=== PATIENT | female | born 2000 | race African-American/Black ===

== ENCOUNTER 2021-02-20 08:50 | Emergency (ER) | payer MEDICAID ==
[~2021-02-20] VITALS: Ht 160 cm; Wt 46.3 kg
[2021-02-20 08:56] VITALS: BP 108/55
--- NOTE | 2021-02-20 09:13 | NUR ---
PER ERMD 12 LEAD WAS DONE ON PT AND CAME BACK NSR AT 63 HR.
--- NOTE | 2021-02-20 09:28 | NUR ---
20/F PRESENTS TO ED WITH C/O LOWER RIGHT ABDOMINAL PAIN SINCE THIS MORNING. PATIENT STATES SHE WOKE UP AROUND 7AM FEELING "SHARP CHEST PAIN" AND HAD TWO EPISODES OF VOMITING, STATING CHEST PAIN N/V HAS SINCE RESOLVED BUT NOW REPORTS 10/10 SHARP LOWER ABDOMINAL PAIN THAT IS NONRADIATING. PATIENT STATES SHE NOTICED HER VOMIT WAS "RED" BUT STATES SHE ATE HOT CHEETOS LAST NIGHT. PATIENT STATES SHE HAS HX OF GASTRIC ULCERS AND STATES "THIS FEELS LIKE THAT." DENIES CP, SOB, FEVER, CHILLS OR URINARY SYMPTOMS.
[2021-02-20] MEDS ORDERED: KETOROLAC 15 MG/ML VIAL IM ONE (10:10)
--- NOTE | 2021-02-20 10:51 | NUR ---
ULTRASOUND AT BEDSIDE
--- NOTE | 2021-02-20 10:55 | NUR ---
PATIENT STATES SHE IS UNABLE TO PROVIDE URINE AT THIS TIME.
[2021-02-20 11:21] LABS: BASOPHILS % (AUTO) 0.2 % (0.0-2.0); EOSINOPHILS # (AUTO) 0.1 K/uL (0-0.4); EOSINOPHILS % (AUTO) 2.3 % (0.0-4.0); HEMATOCRIT 40.8 % (36-48); HEMOGLOBIN 13.4 g/dL (12.0-16.0); LYMPHOCYTES # (AUTO) 2.8 K/uL (2.5-16.5); LYMPHOCYTES % (AUTO) 46.7 % (20.5-51.1); MEAN CORPUSCULAR HEMOGLOBIN 31 pg (27-31); MEAN CORPUSCULAR HGB CONC 33 g/dL (33-37); MEAN CORPUSCULAR VOLUME 93.5 fL (80-94); MONOCYTES # (AUTO) 0.4 K/uL (0.8-1.0); MONOCYTES % (AUTO) 7.3 % (1.7-9.3); NEUTROPHILS # (AUTO) 2.6 K/uL (1.8-7.7); NEUTROPHILS % (AUTO) 43.5 % (42.2-75.2); PLATELET COUNT (AUTO) 174 K/uL (140-450); RED BLOOD CELL COUNT(AUTO) 4.36 MIL/uL (4.20-5.40); RED CELL DISTRIBUTION WIDTH 13.4 % (11.6-13.7)
[2021-02-20 11:40] LABS: ALBUMIN 4.4 g/dL (3.4-5.0); ANION GAP 13.5 (8-16); CREATININE 0.9 mg/dL (0.6-1.3); POTASSIUM 3.5 mmol/L (3.5-5.1); TOTAL BILIRUBIN 0.3 mg/dL (0.0-1.0)
--- NOTE | 2021-02-20 12:18 | NUR ---
PATIENT ATTEMPTED TO GIVE URINE, STATING STILL UNABLE TO. PROVIDED WITH WATER, DR. VAZQUEZ MADE AWARE.
[2021-02-20 12:35] LABS: APPEARANCE,URINE CLEAR (CLEAR); BILIRUBIN,URINE NEGATIVE (NEGATIVE); BLOOD, URINE NEGATIVE (NEGATIVE); COLOR,URINE YELLOW (YELLOW); LEUKOCYTE ESTERASE ,URINE NEGATIVE (NEGATIVE); NITRITE, URINE NEGATIVE (NEGATIVE); UGLUCOSE NEGATIVE (NEGATIVE)
--- NOTE | 2021-02-20 13:35 | NUR ---
PATIENT TAKEN TO CT VIA [facility]
[2021-02-20] MEDS ORDERED: NAPR-54 PO (14:07)
[2021-02-20 14:17] VITALS: BP 121/71
== END 2021-02-20 14:17 | disposition home or self-care (01) ==
LOC: MED 08:50
DX: R10.31 Right lower quadrant pain (principal); R10.32 Left lower quadrant pain; R07.9 Chest pain, unspecified; R11.10 Vomiting, unspecified; J45.909 Unspecified asthma, uncomplicated; Z86.69 Personal history of other diseases of the nervous system and sense organs; F17.200 Nicotine dependence, unspecified, uncomplicated; Z79.1 Long term (current) use of non-steroidal anti-inflammatories (NSAID)
CPT/HCPCS: 36415; 74177; 76705; 76856; 80053; 81003; 81025; 83690; 84703; 85025; 93005; 93976; 96372; 99285; J1885; Q0092; Q9967

== ENCOUNTER 2021-05-01 17:17 | Emergency (ER) | payer MEDICAID ==
[~2021-05-01] VITALS: Ht 160 cm; Wt 46.7 kg
[~2021-05-01 17:17] MED LIST: NAPR-54 PO
[2021-05-01 17:27] VITALS: BP 121/73
[2021-05-01] MEDS ORDERED: methylPREDNISolone SS 125 MG in WATER STERILE 2 ML IM ONE (18:30)
[2021-05-01] MEDS ORDERED: WATER STERILE 10 ML MC ONE (18:37)
[2021-05-01] MEDS ORDERED: CEPH-588 PO (18:37)
[2021-05-01] MEDS ORDERED: methylPREDNISolone SS 125 MG/2 ML VIAL ONE (18:37)
[2021-05-01] MEDS ORDERED: PRED20TA5 PO (18:37)
== END 2021-05-01 19:10 | disposition home or self-care (01) ==
LOC: MED 17:17
DX: T78.49XA Other allergy, initial encounter (principal); J45.909 Unspecified asthma, uncomplicated; Z86.69 Personal history of other diseases of the nervous system and sense organs; F17.200 Nicotine dependence, unspecified, uncomplicated; Z79.1 Long term (current) use of non-steroidal anti-inflammatories (NSAID); X58.XXXA Exposure to other specified factors, initial encounter
CPT/HCPCS: 96372; 99283; J2930